=== PATIENT | male | born 1955 | race Caucasian/White ===

== ENCOUNTER 2020-08-27 08:25 | Day surgery (SDC) | payer BC, SELFPAY ==
--- NOTE | 2020-08-23 16:12 | HP_ITS ---
DATE OF SERVICE: 08/27/2020 PROPOSED DATE OF SERVICE: 08/27/2020. PRIMARY CARE PHYSICIAN: David Boogie MD. CHIEF COMPLAINT: Dysphagia. HISTORY OF PRESENT ILLNESS: The patient is a pleasant 65-year-old man, who presents for upper endoscopy. He has a history of a Schatzki ring with stricturing component and has also had biopsies at the EG junction showing intestinal metaplasia suggestive of Navarrete's esophagus in the past. He previously underwent upper endoscopy with balloon dilation on multiple occasions, most recently in February of 2019. Findings at that time included nonobstructive Schatzki ring with a sliding hiatal hernia. The EG junction was irregular. 20 mm balloon dilation x2 was performed. Biopsies were obtained and pathology at that time showed no intestinal metaplasia. He has had recent worsening symptoms of dysphagia and presents for upper endoscopy with balloon dilation. PAST MEDICAL HISTORY: 1. Schatzki ring/stricture as above. 2. Asthmatic bronchitis. 3. Hypertension. 4. Chronic kidney disease stage 2. 5. Cervical radiculopathy. CURRENT MEDICATIONS: Albuterol, diltiazem, Flonase, pantoprazole. ALLERGIES: NONE REPORTED. FAMILY HISTORY: This is reviewed with the patient and is noncontributory. SOCIAL HISTORY: There is no current tobacco or alcohol abuse. REVIEW OF SYSTEMS: SKIN: No pruritus. HEENT: Negative. CARDIOPULMONARY: No shortness of breath or chest pain. GASTROINTESTINAL: As above. Colonoscopy normal in 2013. GENITOURINARY: Negative. NEUROPSYCHIATRIC: Negative. PHYSICAL EXAMINATION: Skin anicteric HEENT negative lungs clear heart rrr s1 s2 no murmur abd soft nontender IMPRESSION: Schatzki ring with esophageal stricture and history of Navarrete's esophagus. PLAN: Upper endoscopy. Risks and benefits of the procedure have been discussed with the patient, who understands and agrees to proceed. MD CRYSTAL Anaya/CLARITA / [id number]
--- NOTE | 2020-08-26 11:08 | HO.ANESPROP2 ---
Documented by User: Khloe Alcala 08/26/20 11:12 HPI - Anesthesia Eval Consult details Narrative: 65yo M for Upper Endoscopy with Balloon Dilitation [facility] Past Medical History Medical History Asthmatic bronchitis Cervical radiculopathy CKD (chronic kidney disease) HTN (hypertension) Schatzki's ring Social History Social History Are you a primary associate director career services to a significant other at home: No Do you presently have visiting nurse or other home services: No Smoking Status: Never smoker Second Hand Smoke Exposure: No Use of substances other than those prescribed or required for medical reasons: No Advance Directives: No Advance Directives Information Provided: Yes Advance Directives on File: No Recently lost weight without trying: No Meds Allergies Allergy/AdvReac Type Severity Reaction Status Date / Time No Known Allergies Allergy Verified 08/26/20 11:10 Home Medications Medication Instructions Recorded Confirmed Last Taken Type Flonase 08/26/20 Unknown History albuterol sulfate 1 tab PO BID 08/26/20 08/26/20 Unknown History diltiazem HCl [DILT-XR] 1 cap PO DAILY 08/26/20 08/26/20 Unknown History pantoprazole 08/26/20 Unknown History Exam Exam Date and Time: August 26, [id number] Assessment and Plan Assessment Anesthesia Assessment: Chart Reviewed Documented by User: Lilliam Ramos 08/27/20 10:05 [facility] Past Medical History Medical History Asthmatic bronchitis Cervical radiculopathy CKD (chronic kidney disease) HTN (hypertension) Schatzki's ring Social History Social History Are you a primary associate director career services to a significant other at home: No Do you presently have visiting nurse or other home services: No Smoking Status: Never smoker Second Hand Smoke Exposure: No Use of substances other than those prescribed or required for medical reasons: No Advance Directives: No Advance Directives Information Provided: Yes Advance Directives on File: No Recently lost weight without trying: No Meds Allergies Allergy/AdvReac Type Severity Reaction Status Date / Time No Known Allergies Allergy Verified 08/26/20 11:10 Home Medications Medication Instructions Recorded Confirmed Last Taken Type Flonase 08/26/20 Unknown History albuterol sulfate 1 tab PO BID 08/26/20 08/26/20 Unknown History diltiazem HCl [DILT-XR] 1 cap PO DAILY 08/26/20 08/26/20 Unknown History pantoprazole 08/26/20 Unknown History Exam Airway Mallampati Class: III TM Dist: >3cm Neck ROM: Full Loose/Missing/Broken Teeth: No Heart: RRR Lungs: CTA Assessment and Plan Assessment Anesthesia Assessment: Anesthesia Plan Discussed and Chart Reviewed Final Anesthetic Review NPO: Yes ASA Class: II Final Preanesthetic Review: Meds/Allgs Chart Reviewed, Consent Obtained/Reviewed and Anes Risks/Benef Reviewed Patient Risk: Low Procedure Risk: Intermediate Anesthetic Plan Anesthetic Plan: MAC: Disposition: Standard PACU
[2020-08-27 09:16] VITALS: BP 168/91; PULSE 66; RESP 16; TEMP 36.6; O2SAT 96
[2020-08-27 09:39] VITALS: BMI 29.7
--- NOTE | 2020-08-27 09:59 | MHC.SHP ---
Pre-Procedural Eval Section A The patient is an INPATIENT: No Changes since office visit: No Cold of Flu in the past 2 weeks, No New Medical Problems, No Changes in Medication and No Patient answered all questions The History & Physical has been completed within 30 days and I have reviewed it.: Yes Section B Chief Complaint: esophageal obstruction Allergies: Allergies Allergy/AdvReac Type Severity Reaction Status Date / Time No Known Allergies Allergy Verified 08/26/20 11:10 Plan I have reviewed the history and physical and performed a pertinent physical examination on my patient. No changes have occurred unless specified.
--- NOTE | 2020-08-27 10:28 | PM.OP ---
Brief Operative Note Date of Service: 08/27/20 Pre-op diagnosis: dysphagia Post-op diagnosis: same (schatzki ring) Procedure: upper endoscopy balloon dilation biopsy Surgeon: Adan Joshua Anesthesia: MAC Estimated blood loss (mL): 5 Pathology: other (bxs egj) Condition: stable Disposition: PACU
[2020-08-27 10:30] VITALS: BP 120/67; PULSE 55; RESP 18; TEMP 36.5; O2SAT 97
[2020-08-27 10:45] VITALS: BP 136/82; PULSE 62; RESP 18; TEMP 36.5; O2SAT 97
--- NOTE | 2020-08-27 10:59 | OP_ITS ---
SURGEON: Adan Joshua MD INDICATIONS: Dysphagia and Schatzki ring. PREOPERATIVE DIAGNOSIS: POSTOPERATIVE DIAGNOSIS: PROCEDURE PERFORMED: Upper endoscopy with balloon dilation and biopsy. ESTIMATED BLOOD LOSS: COMPLICATIONS: ANESTHESIA: ASSISTANTS: SPECIMENS: MEDICATIONS: Monitored anesthesia care. DESCRIPTION OF PROCEDURE: History and physical performed. The risks and benefits of the procedure were explained to the patient. Informed consent was obtained. The patient was placed in left lateral decubitus position. The Olympus video gastroscope was introduced into the esophagus, stomach, and duodenum. Examination was performed. The scope was removed. He tolerated the procedure well and was taken to recovery area in stable condition. FINDINGS: Esophagus: The esophagus showed a nonobstructive Schatzki ring. The scope passed through this. There was a sliding hiatal hernia that prolapsed with breathing. Stomach: The stomach was normal. Duodenum: The bulb and second portion were normal. Balloon dilation of the ring was performed with a 20 mm balloon inflated to was recommended pressure for 60 seconds with good results. Biopsies were obtained from the EG junction. There was no evidence of esophagitis or Navarrete's esophagus. IMPRESSION: Schatzki ring. RECOMMENDATION: Follow up the biopsy results. MD CRYSTAL Anaya/CLARITA / [id number]
== END 2020-08-27 11:10 | disposition home or self-care (01) ==
PROVIDERS: Visit Provider Internal Medicine Gastroenterology
PROC: (CPT 43249; principal; 2020-08-27 09:30)
DX: K22.2 Esophageal obstruction (principal); K44.9 Diaphragmatic hernia without obstruction or gangrene; I12.9 Hypertensive chronic kidney disease with stage 1 through stage 4 chronic kidney disease, or unspecified chronic kidney disease; N18.2 Chronic kidney disease, stage 2 (mild); J45.909 Unspecified asthma, uncomplicated; Z79.899 Other long term (current) drug therapy
CPT/HCPCS: 43249; 43239; 88305; C1726

== ENCOUNTER 2021-07-25 10:53 | Day surgery (SDC) | payer OTHER, SELFPAY ==
--- NOTE | 2021-07-10 10:03 | HP_ITS ---
DATE OF SERVICE: 07/16/2021 Date of service will be July 16, 2021. HISTORY OF PRESENT ILLNESS: The patient is a pleasant 66-year-old man, who presents for upper endoscopy and colonoscopy. He has a history of gastroesophageal reflux disease with a nonobstructive Schatzki ring that requires periodic dilations due to dysphagia. He has been having increasing dysphagia over the past several weeks and presents for upper endoscopy. Previous endoscopy in August of 2020 did show a nonobstructive Schatzki ring and balloon dilation was performed to 20 mm with improvement in symptoms. Biopsies were negative for intestinal metaplasia, which he has had in the past. There has been no hematemesis or melena. He also reports intermittent bright red blood per rectum without any rectal pain or abdominal pain. He has had no other change in his bowel habits. He will undergo colonoscopy for further evaluation. Last colonoscopy was in 2013. PAST MEDICAL HISTORY: 1. Gastroesophageal reflux disease with previous history of intestinal metaplasia/Navarrete's esophagus and Schatzki ring requiring periodic dilations as above. 2. Hypertension. 3. Chronic kidney disease stage 2. 4. Cervical radiculopathy. 5. Headaches. 6. Asthmatic bronchitis. CURRENT MEDICATIONS: Albuterol, amlodipine, Claritin, and pantoprazole. ALLERGIES: THERE ARE NONE REPORTED. FAMILY HISTORY: This is negative for colon cancer. SOCIAL HISTORY: There is no current tobacco, alcohol, or substance abuse. REVIEW OF SYSTEMS: SKIN: No pruritus. HEENT: Negative. CARDIOPULMONARY: No shortness of breath or chest pain. GASTROINTESTINAL: As above. GENITOURINARY: Negative. NEUROPSYCHIATRIC: Negative. PHYSICAL EXAMINATION: This will be updated at the time of his procedure. IMPRESSION: 1. Dysphagia with history of Schatzki ring. 2. Rectal bleeding. PLAN: Upper endoscopy and colonoscopy. Risks and benefits of the procedure have been discussed with the patient who understands and agrees to proceed. He will have balloon dilation and biopsies of the time of his endoscopy. MD CRYSTAL Anaya/CALRITA / [id number]
[2021-07-10 12:11] VITALS: BMI 29.3
--- NOTE | 2021-07-24 12:25 | HO.ANESPROP2 ---
Documented by User: Khloe Alcala NP 07/24/21 12:26 HPI - Anesthesia Eval Consult details Narrative: 66yo M for Upper Endoscopy with Balloon Dilitation and Colonoscopy s/p EGD with dilation 08/2020 with MAC PMFSH Past Medical History Medical History (Updated 07/10/21 @ 12:05 by Iva Styles, RN) Asthmatic bronchitis Cervical radiculopathy COVID-19 vaccine series completed Dysphagia GERD (gastroesophageal reflux disease) Headache HTN (hypertension) Schatzki's ring Surgical History Surgical History (Updated 07/10/21 @ 12:05 by Iva Styles RN) History of endoscopy History of surgery Social History Social History Are you a primary health care recruiter to a significant other at home: No Do you presently have visiting nurse or other home services: No Patient Tobacco Use Status: Never used Tobacco Second Hand Smoke Exposure: No Use of substances other than those prescribed or required for medical reasons: No Have you been hit, kicked, punched, or otherwise hurt by someone within the past year? If so, by whom?: No Are you DNR?: No Advance Directives: No Advance Directives Information Provided: No Advance Directives on File: No Recently lost weight without trying: No Eating poorly because of decreased appetite: No Nutrition Risks: Difficulty swallowing Meds Allergies Allergy/AdvReac Type Severity Reaction Status Date / Time No Known Allergies Allergy Verified 07/10/21 11:38 Home Medications Medication Instructions Recorded Confirmed Last Taken Type albuterol sulfate 4 mg tablet 1 tab PO BID PRN 08/26/20 07/10/21 Unknown History amlodipine 5 mg tablet 1 tab PO BEDTIME 07/10/21 07/10/21 Unknown History pantoprazole 40 mg tablet,delayed 40 mg PO DAILY 07/10/21 07/10/21 Unknown History release Exam Exam Date and Time: July 24, 2021 1225 Height,Weight and Vital Signs: Height 6 ft 1 in Weight 101 kg Assessment and Plan Assessment Anesthesia Assessment: Chart Reviewed Documented by User: Javier Adam 07/25/21 12:51 [facility] Past Medical History Medical History (Updated 07/10/21 @ 12:05 by Iva Styles, JERICA) Asthmatic bronchitis Cervical radiculopathy COVID-19 vaccine series completed Dysphagia GERD (gastroesophageal reflux disease) Headache HTN (hypertension) Schatzki's ring Family History Family history of problems with anesthesia: No Surgical History Surgical History (Updated 07/10/21 @ 12:05 by Iva Styles RN) History of endoscopy History of surgery History of Problems with Anesthesia: No Social History Social History Are you a primary health care recruiter to a significant other at home: No Do you presently have visiting nurse or other home services: No Patient Tobacco Use Status: Never used Tobacco Second Hand Smoke Exposure: No Use of substances other than those prescribed or required for medical reasons: No Have you been hit, kicked, punched, or otherwise hurt by someone within the past year? If so, by whom?: No Are you DNR?: No Advance Directives: No Advance Directives Information Provided: No Advance Directives on File: No Recently lost weight without trying: No Eating poorly because of decreased appetite: No Nutrition Risks: Difficulty swallowing Meds Allergies Allergy/AdvReac Type Severity Reaction Status Date / Time No Known Allergies Allergy Verified 07/10/21 11:38 Home Medications Medication Instructions Recorded Confirmed Last Taken Type albuterol sulfate 4 mg tablet 1 tab PO BID PRN 08/26/20 07/10/21 Unknown History amlodipine 5 mg tablet 1 tab PO BEDTIME 07/10/21 07/10/21 Unknown History pantoprazole 40 mg tablet,delayed 40 mg PO DAILY 07/10/21 07/10/21 Unknown History release Exam Airway Mallampati Class: III TM Dist: >3cm Neck ROM: Full Loose/Missing/Broken Teeth: Yes (Crowns ) Heart: rrr Lungs: bl breath sounds Assessment and Plan Assessment Anesthesia Assessment: Anesthesia Plan Discussed Final Anesthetic Review Family History of Problems with Anesthesia: No History of Problems with Anesthesia: No NPO: Yes ASA Class: III Final Preanesthetic Review: Meds/Allgs Chart Reviewed, Consent Obtained/Reviewed and Anes Risks/Benef Reviewed Patient Risk: High Procedure Risk: Intermediate Anesthetic Plan Anesthetic Plan: MAC: Disposition: Standard PACU
[2021-07-25 11:00] VITALS: PULSE 82; RESP 17; TEMP 36.7; O2SAT 97; BMI 29.0
[2021-07-25] MEDS: Lactated Ringers 1,000 ML 100 ML IVCONT (11:27)
--- NOTE | 2021-07-25 11:27 | MHC.SHP ---
Pre-Procedural Eval Section A Date of Service: 07/25/21 Section B Chief Complaint: bleeding,dysphagia Details of Present Illness: see H&P, no changes Relevant Family History (Specify if Yes): No Relevant Social History: None Present Medications: see Short Stay Collaborative assessment Medical History: No relevant PMH History of Previous Operations: No relevant previous surgery Allergies: Allergies Allergy/AdvReac Type Severity Reaction Status Date / Time No Known Allergies Allergy Verified 07/10/21 11:38 Review of Systems Sugical H&P ROS: Negative: Constitution, Cardiovascular, Respiratory, Neurological, Psychiatric, Hem-Onc, Allergic/Immunologic, Gastrointestinal, Genitourinary, Musculoskeletal, Integumentary, Endocrine and Eyes/Ears/Nose/Throat Exam Surgical H&P Exam: Normal: HEENT, Normal: Heart, Normal: Lungs, Normal: Extremities, Normal: Abdomen, Normal: Skin and Normal: Neurological Plan I have reviewed the history and physical and performed a pertinent physical examination on my patient. No changes have occurred unless specified.
[2021-07-25 12:25] VITALS: BP 116/63; PULSE 77; RESP 17; TEMP 37.6; O2SAT 98
--- NOTE | 2021-07-25 12:37 | PM.OP ---
Brief Operative Note Date of Service: 07/25/21 Pre-op diagnosis: dysphagia, rectal bleeding Post-op diagnosis: same (schatzki ring, colon polyp) Procedure: egd, colon Surgeon: Adan Joshua Anesthesia: MAC Was an Sanding Supervisor used for this Procedure?: No Estimated blood loss (mL): 5 Condition: stable Disposition: PACU
[2021-07-25 12:40] VITALS: BP 118/69; PULSE 74; RESP 16; TEMP 37.1; O2SAT 98
--- NOTE | 2021-07-25 12:48 | OP_ITS ---
SURGEON: Adan Joshua MD INDICATIONS: 1. Dysphagia and history of Schatzki ring. 2. Rectal bleeding. PREOPERATIVE DIAGNOSIS: POSTOPERATIVE DIAGNOSIS: PROCEDURE PERFORMED: 1. Upper endoscopy with balloon dilation and biopsy. 2. Colonoscopy to the terminal ileum with snare polypectomy. ESTIMATED BLOOD LOSS: COMPLICATIONS: ANESTHESIA: Medications, monitored anesthesia care. ASSISTANTS: SPECIMENS: DESCRIPTION OF PROCEDURE: History and physical was performed. The risks and benefits of the procedure were explained to the patient. Informed consent was obtained. The patient was placed in the left lateral decubitus position. The Olympus video gastroscope was introduced into the esophagus, stomach, and duodenum. Examination was performed. The scope was removed. He was repositioned for colonoscopy. A digital rectal exam was performed and was found to be normal. The Olympus pediatric video colonoscope was introduced into the rectum and advanced to the cecum without difficulty. The cecum was identified by transillumination, palpation, and identification of the ileocecal valve. Examination was performed. The scope was removed. He tolerated both procedures well, was returned to recovery area in stable condition. FINDINGS: Upper endoscopy: 1. Esophagus: There was a nonobstructive Schatzki ring. The scope did pass through this. There was no esophagitis. 2. Stomach: The stomach showed no evidence of masses or ulcers. There was a hiatal hernia with a paraesophageal component that was medium in size. 3. Duodenum: The bulb and second portion were normal. 4. Balloon dilation of the Schatzki ring was performed with 2 inflations at 20 mm after the initial inflation at 18 mm for 60 seconds each. The ring was widely patent at the termination of the procedure. Biopsies were obtained from the EG junction and at the mid esophagus. Colonoscopy: The terminal ileum was normal. The visualized colonic mucosa was normal. The quality of the prep was fair with some retained stool coating the mucosa. This did limit the sensitivity examination for detection of small polyps. There was a single polyp measuring approximately 7 mm that was pedunculated at 45 cm. This was removed with the snare and the base was cauterized. Recovery of the polyp is pending at the time of this dictation. There was mild diverticulosis. Retroflexed examination showed some small internal hemorrhoids. IMPRESSION: 1. Schatzki ring. 2. Colon polyp. RECOMMENDATION: 1. Follow up the biopsy results. 2. Consider repeat colonoscopy in 3-5 year period based on limitations of today's examination. MD CRYSTAL Anaya/CLARITA / [id number]
== END 2021-07-25 13:16 | disposition home or self-care (01) ==
PROVIDERS: Visit Provider Internal Medicine Gastroenterology
PROC: (CPT 45385; principal; 2021-07-25 12:00)
PROC: 0DJD8ZZ Inspection of Lower Intestinal Tract, Via Natural or Artificial Opening Endoscopic (ICD-10-PCS; CPT 45378; 2021-07-25 12:00)
DX: K62.5 Hemorrhage of anus and rectum (principal); K63.5 Polyp of colon; K57.30 Diverticulosis of large intestine without perforation or abscess without bleeding; K64.8 Other hemorrhoids; R13.10 Dysphagia, unspecified; K22.2 Esophageal obstruction; G21.9 Secondary parkinsonism, unspecified; K44.9 Diaphragmatic hernia without obstruction or gangrene; I12.9 Hypertensive chronic kidney disease with stage 1 through stage 4 chronic kidney disease, or unspecified chronic kidney disease; N18.2 Chronic kidney disease, stage 2 (mild); J45.909 Unspecified asthma, uncomplicated; Z79.899 Other long term (current) drug therapy
CPT/HCPCS: 45385; 43249; 43239; 88305; C1726

== ENCOUNTER 2023-06-22 10:55 | Day surgery (SDC) | payer OTHER, SELFPAY ==
--- NOTE | 2023-06-17 10:48 | HP_ITS ---
DATE OF SERVICE: 06/22/2023 ANTICIPATED DATE OF SERVICE: 06/22. HISTORY OF PRESENT ILLNESS: The patient is a pleasant 68-year-old man, admitted for upper endoscopy and balloon dilation. He has a history of Schatzki ring and has required recurrent balloon dilation for symptomatic dysphagia. He last underwent upper endoscopy in July 2021 with balloon dilation at 18 and 20 mm with improvement in his symptoms. He has had recurrent symptoms over the past several weeks with intermittent dysphagia and presents for upper endoscopy. He continues on a proton pump inhibitor. There has been no hematemesis or melena. PAST MEDICAL HISTORY: 1. Schatzki ring, requiring balloon dilation as above. Previous biopsies have showed intestinal metaplasia at the EG junction. Most recent biopsies were negative for this. 2. Colon polyps, last colonoscopy, small polyp that could not be 3. Paroxysmal atrial fibrillation, on Eliquis. 4. Hypertension. 5. Chronic kidney disease, stage 2. 6. Cervical radiculopathy. 7. Asthmatic bronchitis. CURRENT MEDICATIONS: Pantoprazole 40 mg daily, albuterol sulfate, Eliquis, metoprolol succinate 25 mg daily, amlodipine 5 mg daily. ALLERGIES: NKDA. FAMILY HISTORY: Negative for GI issues. SOCIAL HISTORY: There is no significant tobacco or alcohol use. PAST SURGICAL HISTORY: Left lower extremity surgery. REVIEW OF SYSTEMS: SKIN: No pruritus. HEENT: Negative. CARDIOPULMONARY: No shortness of breath or chest pain. GASTROINTESTINAL: As above. GENITOURINARY: Negative. NEUROPSYCHIATRIC: Negative. PHYSICAL EXAMINATION: GENERAL: Shows a pleasant male, in no acute distress. vss lungs are clear heart sounds normal abdomen is soft and nontender IMPRESSION: 1. Dysphagia. 2. Schatzki ring. PLAN: Upper endoscopy with balloon dilation. Risks and benefits of the procedure have been discussed with the patient, who understands and agrees to proceed. His Eliquis will be stopped 3 days before the procedure. MD CRYSTAL Anaya/CLARITA / [id number] TRANG
--- NOTE | 2023-06-21 10:56 | P.CONAN_ITS ---
Documented by User: Khloe Alcala NP 06/21/23 10:56 HPI - Anesthesia Eval Consult details Narrative: 68yo M for Upper Endoscopy with Balloon Dilitation Eliquis for PAF PMFSH Past Medical History Medical History CKD (chronic kidney disease), stage II Paroxysmal A-fib COVID-19 vaccine series completed Dysphagia GERD (gastroesophageal reflux disease) Headache Cervical radiculopathy HTN (hypertension) Asthmatic bronchitis Schatzki's ring Family History Family history of problems with anesthesia: No Surgical History Surgical History History of surgery History of endoscopy History of Problems with Anesthesia: No Social History Social History Are you a primary day care provider to a significant other at home: No Do you presently have visiting nurse or other home services: No Patient Tobacco Use Status: Never used Tobacco Second Hand Smoke Exposure: No Advance Directives: No Advance Directives Information Provided: Yes Meds Allergies Allergy/AdvReac Type Severity Reaction Status Date / Time No Known Allergies Allergy Verified 07/10/21 11:38 Home Medications Medication Instructions Recorded Confirmed Last Taken Type albuterol sulfate 4 mg tablet 1 tab PO BID PRN Wheezing 08/26/20 06/18/23 Unknown History amlodipine 5 mg tablet 1 tab PO BEDTIME 07/10/21 06/18/23 Unknown History pantoprazole 40 mg tablet,delayed 40 mg PO DAILY 07/10/21 06/18/23 Unknown History release metoprolol succinate 25 mg 25 mg PO DAILY 06/18/23 06/18/23 Unknown History tablet,extended release 24 hr apixaban 5 mg tablet (Eliquis) 5 mg PO BID 06/21/23 06/21/23 Unknown History Assessment and Plan Assessment Anesthesia Assessment: Chart Reviewed Final Anesthetic Review Family History of Problems with Anesthesia: No History of Problems with Anesthesia: No Documented by User: Tristen Mckinney MD 06/22/23 11:02 [facility] Past Medical History Medical History CKD (chronic kidney disease), stage II Paroxysmal A-fib COVID-19 vaccine series completed Dysphagia GERD (gastroesophageal reflux disease) Headache Cervical radiculopathy HTN (hypertension) Asthmatic bronchitis Schatzki's ring Surgical History Surgical History History of surgery History of endoscopy Social History Social History Are you a primary day care provider to a significant other at home: No Do you presently have visiting nurse or other home services: No Patient Tobacco Use Status: Never used Tobacco Second Hand Smoke Exposure: No Advance Directives: No Advance Directives Information Provided: Yes Meds Allergies Allergy/AdvReac Type Severity Reaction Status Date / Time No Known Allergies Allergy Verified 07/10/21 11:38 Home Medications Medication Instructions Recorded Confirmed Last Taken Type albuterol sulfate 4 mg tablet 1 tab PO BID PRN Wheezing 08/26/20 06/18/23 Unknown History amlodipine 5 mg tablet 1 tab PO BEDTIME 07/10/21 06/18/23 Unknown History pantoprazole 40 mg tablet,delayed 40 mg PO DAILY 07/10/21 06/18/23 Unknown History release metoprolol succinate 25 mg 25 mg PO DAILY 06/18/23 06/18/23 Unknown History tablet,extended release 24 hr apixaban 5 mg tablet (Eliquis) 5 mg PO BID 06/21/23 06/21/23 Unknown History Exam Airway Mallampati Class: III TM Dist: >3cm Neck ROM: Full Loose/Missing/Broken Teeth: Yes Heart: irreg irreg s1s2 Lungs: cta b/l Assessment and Plan Assessment Anesthesia Assessment: Anesthesia Plan Discussed Final Anesthetic Review NPO: Yes ASA Class: III Final Preanesthetic Review: No Changes in Pt Med Stat, Meds/Allgs Chart Reviewed, Consent Obtained/Reviewed and Anes Risks/Benef Reviewed Patient Risk: Intermediate Procedure Risk: Intermediate Assessment/Block/Sedation in SS: Assess/Block/Sedation-SS Anesthetic Plan Anesthetic Plan: MAC: and Agree w/ Assess. and Plan Disposition: Standard PACU
[2023-06-22 11:21] VITALS: BMI 26.8
--- NOTE | 2023-06-22 11:48 | MHC.SHP ---
Pre-Procedural Eval Section A Date of Service: 06/22/23 The patient is an INPATIENT: No Changes since office visit: No Cold of Flu in the past 2 weeks, No New Medical Problems, No Changes in Medication and No Patient answered all questions The History & Physical has been completed within 30 days and I have reviewed it.: Yes Section B Chief Complaint: Esophageal obstruction,dysphagia Allergies: Allergies Allergy/AdvReac Type Severity Reaction Status Date / Time No Known Allergies Allergy Verified 06/22/23 11:22 Plan I have reviewed the history and physical and performed a pertinent physical examination on my patient. No changes have occurred unless specified. Time Spent With Patient Time: Total time managing care of this patient today ____ minutes.
[2023-06-22 11:55] VITALS: BP 135/67; PULSE 95; RESP 16; TEMP 37.1; O2SAT 95
[2023-06-22 12:35] VITALS: BP 97/59; PULSE 76; RESP 18; TEMP 36.3; O2SAT 98
--- NOTE | 2023-06-22 12:46 | OP_ITS ---
DATE OF SERVICE: 06/22/2023 SURGEON: Adan Joshua MD PREOPERATIVE DIAGNOSIS: POSTOPERATIVE DIAGNOSIS: PROCEDURE PERFORMED: Upper endoscopy with biopsy and balloon dilation. ESTIMATED BLOOD LOSS: COMPLICATIONS: ANESTHESIA: Monitored anesthesia care. ASSISTANTS: SPECIMENS: INDICATION: Schatzki ring and dysphagia. DESCRIPTION OF PROCEDURE: A history and physical was performed. The risks and benefits of the procedure were explained to the patient and informed consent was obtained. The patient was placed in the left lateral decubitus position. The Olympus video gastroscope was introduced into the esophagus, stomach, and duodenum. Examination was performed. The scope was removed. He tolerated the procedure well and was taken to the recovery area in stable condition. FINDINGS: Esophagus: The esophagus showed a Schatzki ring at the level of the EG junction at 45 cm from the incisors. The scope did pass through this. There was a moderate to large hiatal hernia. Stomach: The stomach was otherwise normal. There were several benign-appearing gastric polyps in the body and fundus. Antral biopsies were obtained. Duodenum: The bulb and 2nd portion were normal. The Schatzki ring was balloon dilated with 2 inflations at 20 mm through the scope balloon with good results. Next, biopsies were obtained from the EG junction. IMPRESSION: 1. Schatzki ring. 2. Gastric polyps. 3. Hiatal hernia. RECOMMENDATION: 1. Follow up the biopsy results. 2. Barium upper GI series for further evaluation of the hiatal hernia. This appeared larger than on previous endoscopies. MD CRYSTAL Anaya/CLARITA / [id number] TRANG
[2023-06-22 12:50] VITALS: BP 122/79; PULSE 67; RESP 18; TEMP 37.1; O2SAT 96
== END 2023-06-22 13:36 | disposition home or self-care (01) ==
PROVIDERS: PCP Hospitalist; Visit Provider Internal Medicine Gastroenterology
PROC: (CPT 43249; principal; 2023-06-22 12:30)
DX: K22.2 Esophageal obstruction (principal); R13.10 Dysphagia, unspecified; K44.9 Diaphragmatic hernia without obstruction or gangrene; K31.7 Polyp of stomach and duodenum; I48.0 Paroxysmal atrial fibrillation; I12.9 Hypertensive chronic kidney disease with stage 1 through stage 4 chronic kidney disease, or unspecified chronic kidney disease; N18.2 Chronic kidney disease, stage 2 (mild); J45.909 Unspecified asthma, uncomplicated; M54.12 Radiculopathy, cervical region; Z79.01 Long term (current) use of anticoagulants; Z79.899 Other long term (current) drug therapy
CPT/HCPCS: 43249; 43239; 88305; 88342; C1726; J2704